=== PATIENT | male | born 1990 | race Caucasian/White ===

== ENCOUNTER 2017-01-12 10:02 | Inpatient (IN) | payer OTHER ==
[~2017-01-12] VITALS: Ht 180.3 cm; Wt 60.5 kg
[2017-01-12 12:00] VITALS: BP 104/69; PULSE 76; TEMP 36.9; O2SAT 100; Ht 180.3 cm; Wt 60.5 kg
[2017-01-12] MEDS ORDERED: POLYETHYLENE (MIRALAX) 17 GM PACK PO PRN (13:30)
[2017-01-12] MEDS ORDERED: ONDANSETRON INJ 2 MG/ML 2 ML VIAL IV PRN (13:30)
[2017-01-12] MEDS ORDERED: ALUMINUM/MAGNESIUM/SIMETH (MAALOX MAX) 30 ML UDC PO PRN (13:30)
[2017-01-12] MEDS ORDERED: MAGNESIUM HYDROXIDE SUSP 30 ML UDC PO PRN (13:30)
[2017-01-12] MEDS ORDERED: PATIENT'S ALLERGY INFO NEEDS ENTERED SCH (13:45)
--- NOTE | 2017-01-12 13:46 | History and Physical ---
History & Physical Date & Time of Service: Jan 12, 2017 at 13:30 Chief Complaint: Colitis Primary Care Physician: No Doctor, Assigned History of Present Illness Source: patient, family, clinic records, hospital records Patient is a pleasant 26 y/o male, with PMHx of drug use- h/o marijuana use, h/ o Tylenol overdose, and current every day smoker, who presented to [facility] from [facility] due to colitis. According to records, [facility] does not have GI coverage, and did not feel comfortable keeping patient. According to the patient , he has been experiencing mid-lower abdominal pain x4 days. Associated fever/ chills and diarrhea. He notes excessive diarrhea- he has had 3 BMs since arriving (30 minutes ago). Denies any melena or blood. He did try taking Imodium at home with little relief. He has had decreased appetite and little liquid intake. He denies ever having anything like this in the past. He denies any current prescription medication. He denies any significant PMHx. He denies any current drug/alcohol use. Patient denies any sweats, lightheadedness, dizziness, vision changes, CP, palpitations, edema, SOB, wheezing, cough, nausea , vomiting, urinary symptoms, melena, numbness/tingling, weakness, muscle/joint pain, anxiety/depression, active bleeding, or new skin discoloration/changes. Past Medical/Surgical History Past Medical History: Tobacco use h/o drug use h/o Tylenol overdose Past Surgical History: NONE Family History DM, HTN, dyslipidemia, IBS Grandfather had ostomy- unsure of why Social History Smoking Status: Current Every Day Smoker Smokeless Tobacco Use: No Alcohol Use: none Drug Use: none Housing status: lives with family Immunizations History of Influenza Vaccine: Unknown History of Tetanus Vaccine?: Unknown History of Pneumococcal: Unknown History of Hepatitis B Vaccine: Unknown Multi-Drug Resistant Organisms History of MDRO: No Allergies Coded Allergies: No Known Allergies (Unverified , 01/12/17) Physical Exam Vital Signs Date Time Temp Pulse Resp B/P (MAP) Pulse Ox O2 Delivery O2 Flow Rate FiO2 01/12/17 12:00 36.9 76 18 104/69 100 Room Air General Appearance: no apparent distress, + thin Head: normocephalic, atraumatic Eyes: normal inspection, PERRL ENT: hearing grossly normal, + pertinent finding (poor dentition ) Neck: supple Respiratory/Chest: lungs clear, no respiratory distress, no accessory muscle use Cardiovascular: regular rate, rhythm Abdomen/GI: normal bowel sounds, soft, + tenderness (tenderness to light palpation of mid/LLQ), + guarding Back: normal inspection Extremities/Musculoskelatal: no calf tenderness, no pedal edema Neurologic/Psych: alert, normal mood/affect, oriented x 3 Skin: normal color, warm/dry, no rash Impression Assessment and Plan Patient is a pleasant 26 y/o male, with PMHx of drug use- h/o marijuana use, h/ o Tylenol overdose, and current every day smoker, who presented to [facility] from [facility] due to colitis. Colitis: - Admitted to med/surg - IV Cipro + Flagyl- treated w/ IV Levaquin + Flagyl + Cefepime x1 dose at [facility] - Start Floranex 4 tabs TID - NPO- advance per GI recommendations - IV NSS @ 125 ml/hr while NPO - CT from [facility] upload pending - [facility] records- WBC 26.9, hgb 13.6, lactic acid 1.3, UA negative, Na 139, K 3.5, amylase/lipase unremarkable - Check stool cultures and c.diff - CMP, CBC, mag level - Consult GI, appreciate recommendations Tobacco use: - Smoking cessation counselling - Nicotine patch h/o drug use: - Denies IV drug use - Denies current use GI prophylaxis: Protonix 40 mg daily DVT prophylaxis: Lovenox SQ daily Code Status: LEVEL I, FULL Dispo: From home, lives w/ family- no discharge needs anticipated .Attending Addendum: I have physically seen this patient, have directed the physician assistants medical activities, and agree with the H&P as noted above with the following exceptions as noted. Assessment and Plan: Colitis-- Admitted to [facility] IV Cipro and IV Flagyl. Floranex 4 tabs by mouth 3 times a day Nothing by mouth except medications. Normal saline 125 ML's per hour. Stool for culture and C. difficile pending. GI consult. Tobacco use disorder-- Smoking cessation counseling Nicotine patch GERD-- prophylaxis 40 mg by mouth daily. Level of Care Med/Surg Advanced Directives Existing Advance Directive: No Existing Living Will: No Existing Power of Compact Assembler: No Resuscitation Status FULL RESUSCITATION VTE Prophylaxis VTE Risk Assessment Done? Y/N: Yes Risk Level: Moderate Given or contraindicated: Enoxaparin (Lovenox)SQ, T.E.D. Stockings, SCD's Social Service Consult None Apply
[2017-01-12 14:23] LABS: BUN/CREATININE RATIO 7.8 (10-20); CALCIUM 8.3 mg/dl (8.5-10.1); CREATININE 0.9 mg/dl (0.60-1.40); POTASSIUM 3.7 mmol/L (3.5-5.1)
[2017-01-12 14:24] LABS: ALB/GLOB RATIO 0.9 (0.9-2)
--- NOTE | 2017-01-12 14:26 | Gastrointestinal Consultation ---
Gastrointestinal Consultation Date of Consultation: Jan 12, 2017 Attending Physician: [facility] hospitalists; Saman COWART Consulting Physician: Dr. Holland Reason for Consultation: colitis History of Present Illness Patient is a 26 year old male patient w/o a local care provider was brought from [facility] to [facility] for eval and treatment of colitis. Records from [facility] are not yet available and labs here are pending. The patient is seen and examined while resting in bed. He is awake, alert, oriented and tells us that he has had pain, diarrhea and four days. Apparently a Ct was completed there, consistent with colitis. GI there suggested referral here to [facility]. The patient appears uncomfortable. He tells us that he does not have any sick contacts. He has never a previous similar illness. No recent international travel. He denies blood in his BMs. Past Medical/Surgical History Past Medical History: 1. Smoker 2. Prior drug use and prior tylenol overdose attempt. Past Surgical History: No prior endoscopies or surgeries. Social History Smoking Status: Current Every Day Smoker Drug Use: none Allergies Coded Allergies: No Known Allergies (Unverified , 01/12/17) Review of Systems Constitutional: + fever, + chills, No sweats, No weight loss, No weakness Eyes: No eye pain, No redness ENT: No sore throat, No trouble swallowing, No pain on swallowing Respiratory: No cough, No wheezing, No shortness of breath, No dyspnea on exertion Cardiac: No chest pain, No edema, No palpitations Abdomen: + see HPI, + pain, + diarrhea, No nausea, No vomiting Neuro: No memory loss, No weakness, No numbness/tingling, No vertigo, No balance problems Psych: No depression symptoms, No anxiety, No insomnia Heme: No abnormal bleeding/bruising, No night sweats Endo: No excessive thirst, No excessive urination Skin: No rash, No itch, No new/changing skin lesions, No jaundice Physical Exam Date Time Temp Pulse Resp B/P (MAP) Pulse Ox O2 Delivery O2 Flow Rate FiO2 01/12/17 12:00 36.9 76 18 104/69 100 Room Air General Appearance: no apparent distress Eyes: normal inspection, EOMI Neck: supple, no adenopathy, thyroid normal, no JVD Respiratory/Chest: chest non-tender, lungs clear, normal breath sounds, no accessory muscle use Cardiovascular: regular rate, rhythm, no JVD, no murmur Abdomen: normal bowel sounds, soft, no organomegaly, + tenderness (moderately tender overall) Extremities: normal inspection, no pedal edema, normal capillary refill Neurologic/Psych: alert, normal mood/affect, oriented x 3 Skin: normal color, no jaundice, warm/dry, no rash Laboratory Results Last 24 Hours Test 01/12/17 13:44 Impression Patient is a 26 year old male with diarrhea, likely infectious. Plan 1. Will review C-diff and stool culture when available. 2. Agree with Cipro/Flagyl. 3. Dependent on clinical course, may recommend OP colonoscopy in 2 months. I have personally seen and examined the patient with JENNIE Ramsey. Her note reflects my exam and findings. I agree with her impression and plan. Most likely infectious colitis. Given no previous symptoms, doubt IBD. Supportive care. Chadwick Holland M.D.
[2017-01-12] MEDS ORDERED: CIPROFLOXACIN / D5W 400 MG in PREMIXED IN D5W 200 ML IV SCH (15:00)
[2017-01-12] MEDS ORDERED: INFLUENZA VIRUS QUAD VACCINE 0.5 ML SYR IM. ONE (15:15)
[2017-01-12] MEDS ORDERED: INFLUENZA ADMINISTRATION CHARGE ONE (15:30)
[2017-01-12 15:34] LABS: INR 1.1 (0.9-1.1); PROTHROMBIN TIME (PATIENT) 12.2 SECONDS (9.0-12.0)
[2017-01-12 15:40] VITALS: BP 91/56; PULSE 81; TEMP 37.1; O2SAT 98
[2017-01-12 16:00] VITALS: O2SAT 98
[2017-01-12] MEDS: METRONIDAZOLE / NSS 500 MG in PREMIXED NSS 100 ML IV SCH ×2 (16:28→22:44)
[2017-01-12] MEDS: SODIUM CHLORIDE 0.9% 1000ML 1,000 ML IV SCH ×2 (16:28→22:44)
[2017-01-12] MEDS: LACTOBACILLUS ACIDOPHILUS (FLORANEX) TAB PO SCH (17:00)
[2017-01-12] MEDS: MoRPHine SULFATE 2 MG/ML CARP IV PRN ×2 (17:40→23:31)
[2017-01-12] MEDS: NICOTINE 7 MG/24 HR TDSY TD SCH (19:30)
[2017-01-12] MEDS: ENOXAPARIN 40 MG/0.4 ML SYR SQ SCH (19:34)
[2017-01-12 23:09] VITALS: BP 93/56; PULSE 71; TEMP 37.1; O2SAT 99
[2017-01-13] VITALS: O2SAT 98
[2017-01-13] MEDS: SODIUM CHLORIDE 0.9% 1000ML 1,000 ML IV SCH ×2 (05:21→13:40)
[2017-01-13 06:15] LABS: HEMATOCRIT 31.9 % (42-52); MEAN CELL VOLUME 89.1 fL (80-100); MEAN CORPUSCULAR HEMOGLOBIN 30.4 pg (25-34); MEAN CORPUSCULAR HGB CONC 34.2 g/dl (32-36); MEAN PLATELET VOLUME 9.2 fL (7.4-10.4); PLATELET COUNT 240 K/uL (130-400); RED BLOOD COUNT 3.58 M/uL (4.7-6.1); WHITE BLOOD COUNT 10.74 K/uL (4.8-10.8)
[2017-01-13] MEDS: METRONIDAZOLE / NSS 500 MG in PREMIXED NSS 100 ML IV SCH ×2 (06:32→15:12)
[2017-01-13 06:38] LABS: BUN/CREATININE RATIO 5.3 (10-20); CREATININE 0.94 mg/dl (0.60-1.40); POTASSIUM 3.5 mmol/L (3.5-5.1)
[2017-01-13] MEDS: PANTOprazole SOD 40 MG TAB PO SCH (07:30)
[2017-01-13] MEDS: LACTOBACILLUS ACIDOPHILUS (FLORANEX) TAB PO SCH ×3 (07:30→17:11)
[2017-01-13 07:55] VITALS: BP 105/62; PULSE 61; TEMP 37.1; O2SAT 98
[2017-01-13] MEDS: NICOTINE 7 MG/24 HR TDSY TD SCH (10:56)
[2017-01-13 15:31] VITALS: BP 99/59; PULSE 62; TEMP 36.9; O2SAT 98
[2017-01-13] MEDS: MoRPHine SULFATE 2 MG/ML CARP IV PRN ×2 (15:34→21:00)
[2017-01-13] MEDS ORDERED: SODIUM CHLORIDE 0.9% 1000ML 1,000 ML IV SCH (16:00)
--- NOTE | 2017-01-13 16:18 | DIAGNOSTIC IMAGING REPORT ---
KUB CLINICAL HISTORY: Generalized abdominal pain. Diarrhea. FINDINGS: 2 AP supine abdominal radiographs are correlated with abdominal CT from [facility] dated 01/12/2017. There is a nonobstructed abdominal bowel gas pattern. No evidence of intraperitoneal free air is seen on these supine views. There are no abnormal abdominal calcifications. A large phlebolith is noted in the left hemipelvis. The bony structures appear intact. The lung bases are clear as imaged. IMPRESSION: Nonobstructed abdominal bowel gas pattern. Findings of colitis seen on yesterday's abdominal CT scan are not apparent by x-ray. Electronically signed by: Wilson Mcduffie M.D. 01/13/2017 4:16 PM Dictated Date/Time: 01/13/2017 4:15 PM
[2017-01-13 16:56] LABS: BASO % 0.4 %; BASO ABS # 0.03 K/uL (0-0.2); COMPLETE YES; EOS % 1.7 %; HEMATOCRIT 31.8 % (42-52); IG% 0.5 %; LYMPH % 25.9 %; LYMPH ABS # 2.01 K/uL (1.2-3.4); MEAN CELL VOLUME 88.8 fL (80-100); MEAN CORPUSCULAR HEMOGLOBIN 30.7 pg (25-34); MEAN CORPUSCULAR HGB CONC 34.6 g/dl (32-36); MEAN PLATELET VOLUME 8.9 fL (7.4-10.4); MONO % 12.7 %; NEUT % 58.8 %; PLATELET COUNT 225 K/uL (130-400); RED BLOOD COUNT 3.58 M/uL (4.7-6.1); WHITE BLOOD COUNT 7.77 K/uL (4.8-10.8)
[2017-01-13] MEDS: VANCOMYCIN HCL 125 MG/2.5ML SOLN PO SCH ×2 (17:12→21:14)
[2017-01-13] MEDS: RASPBERRY SYRUP 5 ML UDP PO SCH ×2 (17:12→21:14)
[2017-01-13 17:14] LABS: CALCIUM 7.8 mg/dl (8.5-10.1); CREATININE 0.78 mg/dl (0.60-1.40); POTASSIUM 3.2 mmol/L (3.5-5.1)
[2017-01-13] MEDS: NSS + 20MEQ KCL 1000ML 1,000 ML IV SCH (18:24)
[2017-01-13] MEDS: ENOXAPARIN 40 MG/0.4 ML SYR SQ SCH (21:15)
[2017-01-13] MEDS ORDERED: HYDROmorphone INJ 1 MG/ML SYR IV STA (21:38)
[2017-01-13 22:44] LABS: HEMATOCRIT 30.2 % (42-52)
[2017-01-13 23:55] VITALS: BP 96/59; PULSE 60; TEMP 36.9; O2SAT 96
--- NOTE | 2017-01-13 23:56 | Progress Note ---
Subjective Date of Service: Jan 13, 2017. Subjective Pt evaluation today including: conversation w/ patient, physical exam, chart review, lab review 26 yo male with history of drug abuse (no longer on drugs), time in correction, states that he was transferred from [facility] for colitis and hepatomegaly. Patient reports that he was doing well this am but when he tried clear liquid, he had severe abd. pain, and had diarrhea with blood in stool. This was accompanied by some nausea. Patient denies fever, chills, vomiting. Patient gave verbal permission to check for HIV and hepatitis. Review of Systems Constitutional: No fever, No chills ENT: No hearing loss, No unusual epistaxis Respiratory: No cough, No sputum Cardiac: No chest pain, No orthopnea Abdomen: + pain, + nausea Musculoskeletal: No joint pain Male : No dysuria, No urinary frequency Heme: No abnormal bleeding/bruising All Other Systems: Reviewed and Negative Medications Current Inpatient Medications Medications (Trade) Dose Ordered Sig/Sajan Route Start Time Stop Time Status Last Admin Dose Admin Enoxaparin Sodium (Lovenox Inj) 40 mg DAILY@2000 SQ 01/12/17 20:00 02/11/17 19:59 01/12/17 19:34 40 MG Al Hydrox/Mg Hydrox/Simethicone (Maalox Max Susp) 15 ml Q4H PRN PO 01/12/17 13:30 02/11/17 13:29 Magnesium Hydroxide (Milk Of Magnesia Susp) 30 ml Q6H PRN PO 01/12/17 13:30 02/11/17 13:29 Polyethylene (Miralax Powder Packet) 17 gm DAILY PRN PO 01/12/17 13:30 02/11/17 13:29 Ondansetron HCl (Zofran Inj) 4 mg Q6H PRN IV 01/12/17 13:30 02/11/17 13:29 Ciprofloxacin/ Dextrose 400 mg/ Prmx 200 ml @ 100 mls/hr Q12H IV 01/12/17 15:00 01/22/17 14:59 Future Hold 01/12/17 16:28 100 MLS/HR Morphine Sulfate (MoRPHine SULFATE INJ) 1 mg Q3H PRN IV 01/12/17 13:30 01/26/17 13:29 01/12/17 23:31 1 MG Morphine Sulfate (MoRPHine SULFATE INJ) 2 mg Q3H PRN IV 01/12/17 13:30 01/26/17 13:29 01/13/17 21:00 2 MG Nicotine (Nicoderm Cq 7 Mg Patch) 1 patch QAM TD 01/13/17 08:00 02/12/17 07:59 01/13/17 10:56 1 PATCH Miscellaneous (Remove Nicoderm Patch) 1 ea HS N/A 01/12/17 21:00 02/11/17 20:59 01/13/17 21:16 1 EA Pantoprazole Sodium (Protonix Tab) 40 mg QAM PO 01/13/17 08:00 02/12/17 07:59 Lactobacillus Acidophilus (Floranex Tab) 4 tab TIDM PO 01/12/17 17:00 02/11/17 16:59 01/13/17 17:11 4 TAB Vancomycin HCl (Vancomycin Oral Soln) 125 mg QID PO 01/13/17 17:00 01/23/17 16:59 01/13/17 21:14 125 MG Raspberry (Raspberry Syrup 5ml Cup) 5 ml QID PO 01/13/17 17:00 01/27/17 16:59 01/13/17 21:14 5 ML Potassium Chloride/Sodium Chloride 1,000 ml @ 150 mls/hr Q6H40M IV 01/13/17 18:30 02/12/17 18:29 01/13/17 18:24 150 MLS/HR Objective Vital Signs Date Time Temp Pulse Resp B/P (MAP) Pulse Ox O2 Delivery O2 Flow Rate FiO2 01/13/17 16:00 Room Air 01/13/17 15:31 36.9 62 16 99/59 (72) 98 Room Air 01/13/17 08:00 Room Air 01/13/17 07:55 37.1 61 16 105/62 (76) 98 Room Air 01/13/17 00:00 98 Room Air Physical Exam General Appearance: WD/WN, no apparent distress Neck: supple, no adenopathy Respiratory/Chest: chest non-tender, lungs clear, normal breath sounds Cardiovascular: regular rate, rhythm, no edema, no gallop Abdomen: normal bowel sounds, non tender, soft Extremities: normal range of motion, non-tender Skin: normal color, warm/dry Laboratory Results Last 24 Hours Test 01/13/17 05:35 01/13/17 16:46 01/13/17 16:47 01/13/17 22:30 White Blood Count 10.74 K/uL 7.77 K/uL Red Blood Count 3.58 M/uL 3.58 M/uL Hemoglobin 10.9 g/dL 11.0 g/dL 10.5 g/dL Hematocrit 31.9 % 31.8 % 30.2 % Mean Corpuscular Volume 89.1 fL 88.8 fL Mean Corpuscular Hemoglobin 30.4 pg 30.7 pg Mean Corpuscular Hemoglobin Concent 34.2 g/dl 34.6 g/dl RDW Standard Deviation 39.4 fL 39.6 fL RDW Coefficient of Variation 12.2 % 12.2 % Platelet Count 240 K/uL 225 K/uL Mean Platelet Volume 9.2 fL 8.9 fL Sodium Level 144 mmol/L 143 mmol/L Potassium Level 3.5 mmol/L 3.2 mmol/L Chloride Level 114 mmol/L 113 mmol/L Carbon Dioxide Level 24 mmol/L 27 mmol/L Anion Gap 6.0 mmol/L 3.0 mmol/L Blood Urea Nitrogen 5 mg/dl 4 mg/dl Creatinine 0.94 mg/dl 0.78 mg/dl Est Creatinine Clear Calc Drug Dose 100.1 ml/min 120.7 ml/min Estimated GFR () 127.4 142.4 Estimated GFR (Non- 109.9 122.8 BUN/Creatinine Ratio 5.3 5.0 Random Glucose 87 mg/dl 101 mg/dl Calcium Level 8.0 mg/dl 7.8 mg/dl Magnesium Level 2.0 mg/dl Neutrophils (%) (Auto) 58.8 % Lymphocytes (%) (Auto) 25.9 % Monocytes (%) (Auto) 12.7 % Eosinophils (%) (Auto) 1.7 % Basophils (%) (Auto) 0.4 % Neutrophils # (Auto) 4.57 K/uL Lymphocytes # (Auto) 2.01 K/uL Monocytes # (Auto) 0.99 K/uL Eosinophils # (Auto) 0.13 K/uL Basophils # (Auto) 0.03 K/uL Immature Granulocyte % (Auto) 0.5 % Immature Granulocyte # (Auto) 0.04 K/uL Lactic Acid Level 1.6 mmol/L Assessment and Plan Colitis in a 26 yo male with h/o drug abuse secondary to c. diff Will change from flagyl to vanco will give a bolus of 1 liter of NS after the blood in the stool will cotninue with IVF WITH K (due to hypokalemia will monitor cbc RISK OF HIV and hepatitis H/O Iv drug abuse will check HIV and hep B and C Due to abnormal enlarged liver images from [facility]. Smoking on nicotine patch Hypokalemia NS with 20meq IVF Continued [facility] stay due to: inadequate oral pain control Discharge planning: uncertain
[2017-01-14] MEDS: NSS + 20MEQ KCL 1000ML 1,000 ML IV SCH ×3 (00:58→17:06)
[2017-01-14 04:12] LABS: MEAN CELL VOLUME 88.8 fL (80-100); MEAN CORPUSCULAR HEMOGLOBIN 30.5 pg (25-34); MEAN CORPUSCULAR HGB CONC 34.3 g/dl (32-36); MEAN PLATELET VOLUME 8.7 fL (7.4-10.4); PLATELET COUNT 210 K/uL (130-400); RED BLOOD COUNT 3.38 M/uL (4.7-6.1); WHITE BLOOD COUNT 6.57 K/uL (4.8-10.8)
[2017-01-14 04:32] LABS: BUN/CREATININE RATIO 2.9 (10-20); CALCIUM 7.8 mg/dl (8.5-10.1); CREATININE 0.74 mg/dl (0.60-1.40); POTASSIUM 3.7 mmol/L (3.5-5.1)
[2017-01-14 07:28] VITALS: BP 104/61; PULSE 58; TEMP 36.8; O2SAT 99
[2017-01-14] MEDS: MoRPHine SULFATE 2 MG/ML CARP IV PRN ×2 (07:58→14:53)
[2017-01-14] MEDS: LACTOBACILLUS ACIDOPHILUS (FLORANEX) TAB PO SCH ×3 (08:01→17:04)
[2017-01-14] MEDS: PANTOprazole SOD 40 MG TAB PO SCH (08:02)
[2017-01-14] MEDS: VANCOMYCIN HCL 125 MG/2.5ML SOLN PO SCH ×4 (08:03→21:11)
[2017-01-14] MEDS: RASPBERRY SYRUP 5 ML UDP PO SCH ×4 (08:03→21:11)
[2017-01-14 08:25] LABS: HEPATITIS B AB POS
[2017-01-14 09:03] LABS: ACT87 HEP C IGG SCREEN** NEG (NEG)
--- NOTE | 2017-01-14 09:08 | Progress Note ---
Subjective Date of Service: Jan 14, 2017. Subjective Pt evaluation today including: conversation w/ patient, physical exam, lab review, conversation w/ underwriting consultant, review of inpatient medication list Pain: mild to moderate with moving bowels PO Intake: NPO overnight Voiding: no voiding problems patient feeling better, well rested, no BM overnight small liquid BM this AM, no brittnee blood, less pain tolerating Vanco PO, no nausea reviewed labs, K is normal at 3.7 hepatitic B S Ab present without antigen, Hep C and HIV still pending Review of Systems Constitutional: + weakness, + fatigue Abdomen: + pain, + diarrhea, + GI bleeding All Other Systems: Reviewed and Negative Medications Current Inpatient Medications Medications (Trade) Dose Ordered Sig/Sajan Route Start Time Stop Time Status Last Admin Dose Admin Enoxaparin Sodium (Lovenox Inj) 40 mg DAILY@2000 SQ 01/12/17 20:00 02/11/17 19:59 01/12/17 19:34 40 MG Al Hydrox/Mg Hydrox/Simethicone (Maalox Max Susp) 15 ml Q4H PRN PO 01/12/17 13:30 02/11/17 13:29 Magnesium Hydroxide (Milk Of Magnesia Susp) 30 ml Q6H PRN PO 01/12/17 13:30 02/11/17 13:29 Polyethylene (Miralax Powder Packet) 17 gm DAILY PRN PO 01/12/17 13:30 02/11/17 13:29 Ondansetron HCl (Zofran Inj) 4 mg Q6H PRN IV 01/12/17 13:30 02/11/17 13:29 Ciprofloxacin/ Dextrose 400 mg/ Prmx 200 ml @ 100 mls/hr Q12H IV 01/12/17 15:00 01/22/17 14:59 Future Hold 01/12/17 16:28 100 MLS/HR Morphine Sulfate (MoRPHine SULFATE INJ) 1 mg Q3H PRN IV 01/12/17 13:30 01/26/17 13:29 01/12/17 23:31 1 MG Morphine Sulfate (MoRPHine SULFATE INJ) 2 mg Q3H PRN IV 01/12/17 13:30 01/26/17 13:29 01/14/17 07:58 2 MG Nicotine (Nicoderm Cq 7 Mg Patch) 1 patch QAM TD 01/13/17 08:00 02/12/17 07:59 01/13/17 10:56 1 PATCH Miscellaneous (Remove Nicoderm Patch) 1 ea HS N/A 01/12/17 21:00 02/11/17 20:59 01/13/17 21:16 1 EA Pantoprazole Sodium (Protonix Tab) 40 mg QAM PO 01/13/17 08:00 02/12/17 07:59 01/14/17 08:02 40 MG Lactobacillus Acidophilus (Floranex Tab) 4 tab TIDM PO 01/12/17 17:00 02/11/17 16:59 01/14/17 08:01 4 TAB Vancomycin HCl (Vancomycin Oral Soln) 125 mg QID PO 01/13/17 17:00 01/23/17 16:59 01/14/17 08:03 125 MG Raspberry (Raspberry Syrup 5ml Cup) 5 ml QID PO 01/13/17 17:00 01/27/17 16:59 01/14/17 08:03 5 ML Potassium Chloride/Sodium Chloride 1,000 ml @ 150 mls/hr Q6H40M IV 01/13/17 18:30 02/12/17 18:29 01/14/17 07:33 150 MLS/HR Objective Vital Signs Date Time Temp Pulse Resp B/P (MAP) Pulse Ox O2 Delivery O2 Flow Rate FiO2 01/14/17 07:28 36.8 58 16 104/61 (75) 99 Room Air 01/14/17 00:00 Room Air 01/13/17 23:55 36.9 60 18 96/59 (71) 96 Room Air 01/13/17 20:00 Room Air 01/13/17 16:00 Room Air 01/13/17 15:31 36.9 62 16 99/59 (72) 98 Room Air Physical Exam General Appearance: no apparent distress, + thin Eyes: normal inspection, EOMI, sclerae normal ENT: normal ENT inspection, hearing grossly normal, pharynx normal Neck: supple, no adenopathy, no JVD, trachea midline Respiratory/Chest: chest non-tender, lungs clear, normal breath sounds, no respiratory distress, no accessory muscle use Cardiovascular: regular rate, rhythm, no edema, no gallop, no JVD, no murmur Abdomen: normal bowel sounds, soft, no organomegaly, + tenderness (LLQ, mild to deep palpation) Extremities: normal range of motion, non-tender, normal inspection, no pedal edema, no calf tenderness, pelvis stable Neurologic/Psychiatric: 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, no motor/sensory deficits, alert, normal mood/affect, oriented x 3 Skin: normal color, warm/dry, no rash Lymphatic: no adenopathy Laboratory Results Last 24 Hours Test 01/13/17 16:46 01/13/17 16:47 01/13/17 22:30 01/14/17 03:57 White Blood Count 7.77 K/uL 6.57 K/uL Red Blood Count 3.58 M/uL 3.38 M/uL Hemoglobin 11.0 g/dL 10.5 g/dL 10.3 g/dL Hematocrit 31.8 % 30.2 % 30.0 % Mean Corpuscular Volume 88.8 fL 88.8 fL Mean Corpuscular Hemoglobin 30.7 pg 30.5 pg Mean Corpuscular Hemoglobin Concent 34.6 g/dl 34.3 g/dl Platelet Count 225 K/uL 210 K/uL Mean Platelet Volume 8.9 fL 8.7 fL Neutrophils (%) (Auto) 58.8 % Lymphocytes (%) (Auto) 25.9 % Monocytes (%) (Auto) 12.7 % Eosinophils (%) (Auto) 1.7 % Basophils (%) (Auto) 0.4 % Neutrophils # (Auto) 4.57 K/uL Lymphocytes # (Auto) 2.01 K/uL Monocytes # (Auto) 0.99 K/uL Eosinophils # (Auto) 0.13 K/uL Basophils # (Auto) 0.03 K/uL RDW Standard Deviation 39.6 fL 39.7 fL RDW Coefficient of Variation 12.2 % 12.3 % Immature Granulocyte % (Auto) 0.5 % Immature Granulocyte # (Auto) 0.04 K/uL Sodium Level 143 mmol/L 145 mmol/L Potassium Level 3.2 mmol/L 3.7 mmol/L Chloride Level 113 mmol/L 115 mmol/L Carbon Dioxide Level 27 mmol/L 24 mmol/L Anion Gap 3.0 mmol/L 6.0 mmol/L Blood Urea Nitrogen 4 mg/dl 2 mg/dl Creatinine 0.78 mg/dl 0.74 mg/dl Est Creatinine Clear Calc Drug Dose 120.7 ml/min 127.2 ml/min Estimated GFR () 142.4 145.5 Estimated GFR (Non- 122.8 125.5 BUN/Creatinine Ratio 5.0 2.9 Random Glucose 101 mg/dl 87 mg/dl Calcium Level 7.8 mg/dl 7.8 mg/dl Lactic Acid Level 1.6 mmol/L Magnesium Level 2.0 mg/dl Hepatitis B Surface Antigen NEG Hepatitis B Surface Antibody POS Hepatitis C Antibody Screen NEG Assessment and Plan Colitis in a 26 yo male with h/o drug abuse C diff colitis improved today, no BM overnight, no brittnee blood, less pain with BM continue Vancomycin 125mg QID for 14 days total full liquid diet today RISK OF HIV and hepatitis H/O Iv drug abuse hep B negative, Hep C and HIV still pending, will follow up later today Smoking on nicotine patch Hypokalemia - resolved with IV replacement continue NS with 20mEq KCl but at 100cc/hr Continued [facility] stay due to: inadequate oral pain control Discharge planning: uncertain
[2017-01-14 10:20] LABS: HEMATOCRIT 32.8 % (42-52)
[2017-01-14] MEDS: NICOTINE 7 MG/24 HR TDSY TD SCH (12:06)
[2017-01-14 14:58] VITALS: BP 92/56; PULSE 65; TEMP 36.6; O2SAT 100
[2017-01-14] MEDS ORDERED: DiphenhydrAMINE HCL 50 MG/ML VIAL ONE (15:24)
[2017-01-14] MEDS ORDERED: DiphenhydrAMINE HCL 50 MG/ML VIAL IV ONE (15:30)
[2017-01-14] MEDS ORDERED: HYDROmorphone INJ 0.5 MG/0.5 ML SYR IV STA ×2 (15:37→22:24)
[2017-01-14] MEDS ORDERED: HYDROmorphone INJ 0.5 MG/0.5 ML SYR IV PRN (15:45)
[2017-01-14] MEDS ORDERED: METHYLPREDNISOLONE IV 80 MG in SYRINGE 0 ML IV ONE (16:00)
[2017-01-14] MEDS: ENOXAPARIN 40 MG/0.4 ML SYR SQ SCH (21:11)
[2017-01-14 23:35] VITALS: BP 99/59; PULSE 47; TEMP 36.4; O2SAT 98
[2017-01-15] MEDS: NSS + 20MEQ KCL 1000ML 1,000 ML IV SCH ×2 (03:14→12:27)
[2017-01-15 06:49] LABS: HEMATOCRIT 34.4 % (42-52); MEAN CORPUSCULAR HEMOGLOBIN 30.7 pg (25-34); MEAN CORPUSCULAR HGB CONC 34.9 g/dl (32-36); MEAN PLATELET VOLUME 9.5 fL (7.4-10.4); PLATELET COUNT 289 K/uL (130-400); RED BLOOD COUNT 3.91 M/uL (4.7-6.1); WHITE BLOOD COUNT 12.99 K/uL (4.8-10.8)
[2017-01-15 07:14] VITALS: BP 98/59; PULSE 56; TEMP 37.1; O2SAT 98
[2017-01-15 07:20] LABS: BUN/CREATININE RATIO 4.7 (10-20); CALCIUM 8.6 mg/dl (8.5-10.1); CREATININE 0.76 mg/dl (0.60-1.40); POTASSIUM 3.9 mmol/L (3.5-5.1)
[2017-01-15 08:00] VITALS: O2SAT 98
[2017-01-15] MEDS: VANCOMYCIN HCL 125 MG/2.5ML SOLN PO SCH ×2 (08:22→12:27)
[2017-01-15] MEDS: PANTOprazole SOD 40 MG TAB PO SCH (08:22)
[2017-01-15] MEDS: LACTOBACILLUS ACIDOPHILUS (FLORANEX) TAB PO SCH ×2 (08:22→12:27)
[2017-01-15] MEDS: RASPBERRY SYRUP 5 ML UDP PO SCH ×2 (08:22→12:27)
[2017-01-15] MEDS: NICOTINE 7 MG/24 HR TDSY TD SCH (08:23)
[2017-01-15] MEDS ORDERED: VANC5CAP PO (11:53)
--- NOTE | 2017-01-15 12:01 | Discharge Instructions ---
Discharge Instructions Date of Service Jan 15, 2017. Admission Reason for Admission: Colitis Discharge Discharge Diagnosis / Problem: C diff colitis Discharge Goals Goal(s): Improve function, Diagnostic testing (colonoscopy) Activity Recommendations Activity Limitations: resume your previous activity . Instructions / Follow-Up Instructions / Follow-Up Medications: - VANCOMYCIN: 125mg four times a day for 12 more days to complete treatment, do not stop early - FLAGYL: 500mg three times a day for 12 days C diff colitis: responding well to Vancomycin, continue to treat to clear the infection Vancomycin expensive so try Flagyl first, if you get worse on the Flagyl, take prescription for Vancomycin to [facility] recommends follow up in a few weeks for colonoscopy please call [phone] to scheduled this appointment Hepatomegaly: enlarged liver, seen on CT, slightly enlarged but normal liver enzymes normal texture of liver on imaging, no nodules seen hepatitis C and B negative for infection please discuss any further work up with GI on follow up visit Current Hospital Diet Patient's current hospital diet: Low Fiber Diet, Low Fat Diet Discharge Diet Recommended Diet: Regular Diet Pending Studies Studies pending at discharge: no Medical Emergencies . Who to Call and When: Medical Emergencies: If at any time you feel your situation is an emergency, please call 911 immediately. . Non-Emergent Contact Non-Emergency issues call your: [employer] Call Non-Emergent contact if: you have a fever, your pain is not controlled, your pain is worsening, you have any medication questions if diarrhea gets worse . . "Provider Documentation" section prepared by Osei Khoury. . VTE Core Measure Inpt VTE Proph given/why not?: Enoxaparin (Lovenox)DALILA, Holly Walter, SCD's [place] Drug Monitoring Program Search Results: no issues identified
[2017-01-15] MEDS ORDERED: METR-163 PO (12:14)
[2017-01-15 12:35] VITALS: BP 98/59; PULSE 56; TEMP 37.1; O2SAT 98
--- NOTE | 2017-01-15 13:53 | Medical Student: [facility] ---
Med Student Progress Note Date of Service Jan 15, 2017. Subjective Pt evaluation today including: conversation w/ patient, physical exam, chart review, lab review Pt notes that he is feeling much better today. He has had a BM but no abdominal pain. He tolerated a full liquid diet. No other complaints. Feels well, would like to go home today. Review of Systems Constitutional: No fever, No chills, No sweats, No weight loss ENT: No hearing loss, No sore throat Respiratory: No cough, No sputum, No wheezing, No shortness of breath, No dyspnea on exertion Cardiac: No chest pain, No palpitations Abdomen: No pain (no pain today, at rest or after BMs), No nausea, No vomiting , No diarrhea (improved, more formed, less frequent), No constipation Musculoskeletal: No joint pain, No swelling Male : No dysuria, No urinary frequency Skin: No rash, No itch Objective Vital Signs Date Time Temp Pulse Resp B/P (MAP) Pulse Ox O2 Delivery O2 Flow Rate FiO2 01/15/17 12:35 37.1 56 16 98 Room Air 01/15/17 08:00 98 Room Air 01/15/17 07:14 37.1 56 16 98/59 (72) 98 Room Air 01/15/17 00:00 Room Air 01/14/17 23:35 36.4 47 18 99/59 (72) 98 Room Air 01/14/17 20:00 Room Air 01/14/17 16:00 Room Air 01/14/17 14:58 36.6 65 18 92/56 (68) 100 Room Air Physical Exam General Appearance: WD/WN, no apparent distress ENT: hearing grossly normal Neck: supple, no adenopathy Respiratory/Chest: lungs clear, normal breath sounds, no respiratory distress, no accessory muscle use Cardiovascular: regular rate, rhythm, no murmur Abdomen: normal bowel sounds, non tender, soft, no organomegaly Extremities: normal inspection, no pedal edema, no calf tenderness Neurologic/Psychiatric: alert, normal mood/affect, oriented x 3 Skin: normal color, warm/dry, no rash Laboratory Results Last 24 Hours Test 01/15/17 06:15 White Blood Count 12.99 K/uL Red Blood Count 3.91 M/uL Hemoglobin 12.0 g/dL Hematocrit 34.4 % Mean Corpuscular Volume 88.0 fL Mean Corpuscular Hemoglobin 30.7 pg Mean Corpuscular Hemoglobin Concent 34.9 g/dl RDW Standard Deviation 38.6 fL RDW Coefficient of Variation 12.1 % Platelet Count 289 K/uL Mean Platelet Volume 9.5 fL Sodium Level 144 mmol/L Potassium Level 3.9 mmol/L Chloride Level 110 mmol/L Carbon Dioxide Level 26 mmol/L Anion Gap 8.0 mmol/L Blood Urea Nitrogen 4 mg/dl Creatinine 0.76 mg/dl Est Creatinine Clear Calc Drug Dose 123.8 ml/min Estimated GFR () 143.9 Estimated GFR (Non- 124.2 BUN/Creatinine Ratio 4.7 Random Glucose 107 mg/dl Calcium Level 8.6 mg/dl Magnesium Level 2.0 mg/dl Assessment and Plan Assessment and Plan: C.Diff Colitis -Improved, stools are more formed, no abdominal pain today. Wishes to return home. -Insurance issues prevent the pt from immediately obtaining vancomycin PO, therefore patient will take 12 days of Flagyl and only obtain Vancomycin if s/s worsen. -Pt tolerated advancement of diet. -CT scan performed at [facility] saw hepatomegaly w/o nodules or cysts. Recommend outpt GI f/u. Pt requested testing for Chronic Conditions. -No hx of IVDU, hx of detention time. -HBV surface antibody was positive, antigen negative. Likely cleared previous infxn. -HCV negative -HIV pending. 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 Importance of hand washing reviewed. Discharge planning: home, uncertain
--- NOTE | 2017-01-15 16:36 | Discharge Summary ---
Discharge Summary Date of Service Jan 15, 2017. Discharge Summary Admission Date: Jan 12, 2017 at 12:00 Discharge Date: Jan 15, 2017 Discharge Disposition: Home Principal Diagnosis: C diff colitis Problems/Secondary Diagnoses: Hepatomegaly Immunizations: Have You Had Influenza Vaccine: Unknown History of Tetanus Vaccine?: Unknown History of Pneumococcal: Unknown History of Hepatitis B Vaccine: Unknown Procedures: none Consultations: Gastroenterology Medication Reconciliation New Medications: Metronidazole (Flagyl) 500 Mg Tab 500 MG PO TID for 12 Days, #36 TAB Vancomycin Hcl (Vancomycin) 125 Mg Cap 125 MG PO QID for 12 Days, #48 CAP 0 Refills Discharge Exam Patient feeling really well today, bowels more solid, no pain associated with moving bowels, no narcotics needed for almost 24 hours, patient very interested in going home. Patient requested that record be updated, he never used IV drugs in the past. Checked on cost of Vancomycin without insurance, 12 day supply would be $970, Flagyl would be $30 would prefer patient to take Vancomycin, he has insurance in [place], will try to get script filled in [place] Review of Systems: Constitutional: No fever, No chills, No sweats, No weight loss, No weakness , No fatigue, No problem reported Eyes: No worsening of vision, No eye pain, No redness, No discharge, No diplopia, No problem reported ENT: No hearing loss, No unusual epistaxis, No nasal symptoms, No sore throat, No tinnitus, No dental problems, No trouble swallowing, No problem reported Respiratory: No cough, No sputum, No wheezing, No shortness of breath, No dyspnea on exertion, No dyspnea at rest, No hemoptysis, No problem reported Cardiovascular: No chest pain, No orthopnea, No PND, No edema, No claudication, No palpitations, No problem reported Abdomen: No pain, No nausea, No vomiting, No diarrhea, No constipation, No GI bleeding, No problem reported Musculoskeletal: No joint pain, No muscle pain, No swelling, No calf pain, No problem reported Genitourinary - Male: No hematuria, No dysuria, No urinary frequency, No urinary urgency, No urinary hesitancy, No urinary retention, No urinary incontinence, No penile discharge, No lesions, No impotence, No problem reported Neurologic: No memory loss, No paralysis, No weakness, No numbness/tingling , No vertigo, No balance problems, No problem reported Psychiatric: No depression symptoms, No anhedonism, No anxiety, No insomnia , No substance abuse, No problem reported Endocrine: No fatigue, No excessive thirst, No excessive urination, No problem reported Hematologic / Lymphatic: No abnormal bleeding/bruising, No clotting problems , No swollen lymph nodes, No night sweats, No problem reported Integumentary: No rash, No itch, No new/changing skin lesions, No color change, No bleeding, No problem reported Physical Exam: General Appearance: WD/WN, no apparent distress Eyes: normal inspection, EOMI, sclerae normal ENT: normal ENT inspection, hearing grossly normal, pharynx normal Neck: supple, no adenopathy, no JVD, trachea midline Respiratory/Chest: chest non-tender, lungs clear, normal breath sounds, no respiratory distress, no accessory muscle use Cardiovascular: regular rate, rhythm, no edema, no gallop, no JVD, no murmur , normal peripheral pulses Abdomen / GI: normal bowel sounds, non tender, soft, no organomegaly Extremities: normal inspection, no calf tenderness, normal capillary refill , no pedal edema, normal range of motion 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, no motor/sensory deficits , alert, normal mood/affect, normal reflexes, oriented x 3 Skin: normal color, warm/dry, no rash Lymphatic: no adenopathy Hospital Course Colitis in a 26 yo male C diff colitis markedly improved today, bowels more solid, no bleeding, no pain at all continue Vancomycin 125mg QID for 14 days total patient given script, going to attempt to fill in [place] where he has insurance provided with script for Flagyl 500mg TID if he cannot get the Vancomycin filled follow up with [facility] for colonoscopy in 6 weeks, phone number provided tolerating regular diet prior to discharge Hepatomegaly on CT A/P at [facility] measured at 23cm, normal texture, no nodules seen LFT normal for two sets Hepatitis B and C negative, no RUQ pain follow up with [facility] in a few weeks RISK OF HIV and hepatitis due to incarceration, NOT a history of IV drug use hep B negative, Hep C negative, HIV still pending, will follow up on results and call patient Smoking on nicotine patch Hypokalemia - resolved with IV replacement continue NS with 20mEq KCl but at 100cc/hr Total Time Spent: Greater than 30 minutes This includes examination of the patient, discharge planning, medication reconciliation, and communication with other providers. Discharge Instructions Please refer to the electronic Patient Visit Report (Discharge Instructions) for additional information. Follow-Up [facility] in a few weeks Additional Copies To Padmini Khoury C.R.N.P.
== END 2017-01-15 13:44 | disposition home or self-care (01) | DRG 373 ==
LOC: UNDOADMIN 12:00 → C.4E 12:00
PROVIDERS: ADMIT Internal Medicine Sports Medicine; ATTEND Internal Medicine Sports Medicine
DX: A04.72 Enterocolitis due to Clostridium difficile, not specified as recurrent (principal); R16.0 Hepatomegaly, not elsewhere classified; E87.6 Hypokalemia; K21.9 Gastro-esophageal reflux disease without esophagitis; F17.200 Nicotine dependence, unspecified, uncomplicated; Z23 Encounter for immunization; Z87.898 Personal history of other specified conditions